=== PATIENT | female | born 1975 | race Caucasian/White ===

== ENCOUNTER 2023-05-22 00:57 | Day surgery (SDC) | payer BC, SELFPAY ==
[2023-05-15 14:56] VITALS: BMI 38.7
--- NOTE | 2023-05-20 09:20 | SUR.PREOP ---
Patient called regarding upcoming procedure. Voicemail left regarding appointment times.
[2023-05-22 08:06] VITALS: BP 117/69; PULSE 75; RESP 18; TEMP 36.4; O2SAT 98; BMI 37.3
[2023-05-22] MEDS: LACTATED RINGERS 1,000 ML 150 ML IV CONT (08:09)
--- NOTE | 2023-05-22 08:19 | WPDANESEPPF ---
Anes - Initial Pre Proc Eval Procedure: Operation Date: 05/22/23 09:30 Proposed Procedures p Screening Colonoscopy - Maikel Olivas MD Date/Time: 05/22/23 08:19 Surgeon: Maikel Olivas MD Pre Op Diagnosis: neoplasm screening Patient Data Age: 48 Gender: F Height: 1.68 m Weight: 104.9 kg Last Vital Signs Temp 97.5 F L 05/22/23 08:06 Pulse 75 05/22/23 08:06 Resp 18 05/22/23 08:06 BP 117/69 05/22/23 08:06 Pulse Ox 98 05/22/23 08:06 O2 Del Method Room Air 05/22/23 08:06 Allergies Allergy/AdvReac Type Severity Reaction Status Date / Time No Known Allergies Allergy Verified 05/22/23 08:04 Home Medications Medication Instructions Recorded Confirmed Type T3/T4 capsules .Route 03/20/23 03/28/23 History hydrochlorothiazide 25 mg tablet 25 mg PO DAILY 03/20/23 05/15/23 History levonorgestrel 21 mcg/24 hours (8 1 device intrauterine ONCE 03/20/23 05/15/23 History yrs) 52 mg intrauterine device (Mirena) progesterone compound .Route 03/20/23 03/28/23 History testrone cream .Route 03/20/23 03/28/23 History valsartan 80 mg tablet 80 mg PO DAILY 03/20/23 05/22/23 History Patient hx anesthesia problems: none Family hx anesthesia problems: none Results Review: All pre-operative results and documents have been reviewed as part of the pre-operative evaluation. [facility] Past Medical History Medical History Hypertension Surgical History Surgical History History of section Hx of tonsillectomy [place] teeth removed Family History Family History Other Bladder cancer Diabetes mellitus Heart disease Hypertension Lung cancer Social History Social History Smoking status: Never smoker Alcohol intake: current Alcohol use details: rarely Substance use: never Substance use type: does not use Do You Feel Safe in your Home?: Yes Lack of Transportation: No Lack of Food: Never True Current Housing: I Have Housing Concerned About Future Housing: No Difficulty Paying Gas/Electric Bills: No Difficulty Paying for Meds: No Currently Unemployed: No Education: Bachelor's Degree Difficulty w/ Childcare or Family Care: No Living arrangements: with family Spiritual care concerns: No Anes - Eval Final PreProcedure Day of Procedure 05/22/23 08:19 Patient weight: obese Heart: regular rate and rhythm Lungs: clear to auscultation Airway: Mallampati scale class II Neurological: alert and oriented Last oral intake: >/= 8 hours ASA classification: II Emergent: no Anesthetic plan: proceed Anesthesia type and monitoring: general GIVS and standard monitoring Results Review: All pre-operative results and documents have been reviewed as part of the pre-operative evaluation. Informed Consent: The patient's anesthetic plan and its attendant risks and benefits were discussed with the patient/family/POA. Questions were solicited and answers provided to the satisfaction of the patient/family/POA.
--- NOTE | 2023-05-22 08:39 | PM.HPGS ---
History of Present Illness History of Present Illness Consent: Risks, benefits, and alternatives have been discussed and questions answered. Patient agrees to proceed with procedure. Chief complaint: neoplasm screening Narrative: Bruna Lewis is a 48 year old female here for first screening colonoscopy Review of Systems Review of Systems: All systems reviewed & are unremarkable except as noted in HPI and below PMFSH Past Medical History Medical History (Updated 05/22/23 @ 08:42 by Maikel Olivas MD) Colon cancer screening Hypertension Surgical History Surgical History History of section Hx of tonsillectomy [place] teeth removed Family History Family History Other Bladder cancer Diabetes mellitus Heart disease Hypertension Lung cancer Social History Social History Smoking status: Never smoker Alcohol intake: current Alcohol use details: rarely Substance use: never Substance use type: does not use Do You Feel Safe in your Home?: Yes Lack of Transportation: No Lack of Food: Never True Current Housing: I Have Housing Concerned About Future Housing: No Difficulty Paying Gas/Electric Bills: No Difficulty Paying for Meds: No Currently Unemployed: No Education: Bachelor's Degree Difficulty w/ Childcare or Family Care: No Living arrangements: with family Spiritual care concerns: No Meds Home Medications and Allergies Home Medications Medication Instructions Recorded Confirmed Type T3/T4 capsules .Route 03/20/23 03/28/23 History hydrochlorothiazide 25 mg tablet 25 mg PO DAILY 03/20/23 05/15/23 History levonorgestrel 21 mcg/24 hours (8 1 device intrauterine ONCE 03/20/23 05/15/23 History yrs) 52 mg intrauterine device (Mirena) progesterone compound .Route 03/20/23 03/28/23 History testrone cream .Route 03/20/23 03/28/23 History valsartan 80 mg tablet 80 mg PO DAILY 03/20/23 05/22/23 History Allergies Allergy/AdvReac Type Severity Reaction Status Date / Time No Known Allergies Allergy Verified 05/22/23 08:04 Vital Signs Vital Signs - 24 hr 05/22/23 08:06 Temperature 97.5 F L Pulse Rate 75 Respiratory Rate 18 Blood Pressure 117/69 Pulse Oximetry 98 Oxygen Delivery Room Air Exam Const: General: comfortable and no acute distress HENMT: Face/Nose/Sinus: Normal nares present Eyes: General: appearance normal, both eyes and all related structures Neck: Neck: no JVD Resp: Auscultation: clear to auscultation bilaterally Cardio: Rate: regular rate Rhythm: regular rhythm GI: Inspection: non-distended GI Palp: Yes Soft to palpation Skin: General skin exam: normal color Neuro: General: gait normal Speech: normal speech Extrem: General: normal to inspection Psych: Mental Status: mental status grossly normal Assessment and Plan Assessment and plan (1) Colon cancer screening: Code(s): Z12.11 - Encounter for screening for malignant neoplasm of colon Status: Acute Assessment and Plan: colonoscopy
[2023-05-22 08:55] VITALS: BP 90/43; PULSE 83; RESP 18; O2SAT 97
[2023-05-22 09:05] VITALS: BP 114/67; PULSE 66; RESP 18; O2SAT 97
[2023-05-22 09:15] VITALS: BP 111/56; PULSE 70; RESP 18; O2SAT 97
== END 2023-05-22 09:25 | disposition home or self-care (01) ==
PROVIDERS: Visit Provider Internal Medicine Gastroenterology
PROC: 0DJD8ZZ Inspection of Lower Intestinal Tract, Via Natural or Artificial Opening Endoscopic (ICD-10-PCS; CPT 45378; principal; 2023-05-22 09:30)
DX: Z12.11 Encounter for screening for malignant neoplasm of colon (principal); K63.5 Polyp of colon; K64.8 Other hemorrhoids; I10 Essential (primary) hypertension; E66.9 Obesity, unspecified; Z68.37 Body mass index [BMI] 37.0-37.9, adult
CPT/HCPCS: 45385; 88305; J2704; J7120